=== PATIENT | female | born 1960 | race Caucasian/White ===

== ENCOUNTER 2016-08-18 10:25 | Outpatient (CLI) | payer BC | END 2016-08-18 10:26 | disposition home or self-care (01) | LOC: NC 10:25 | PROVIDERS: ATTEND Internal Medicine | DX: E66.9 Obesity, unspecified (principal); Z71.3 Dietary counseling and surveillance; Z68.32 Body mass index [BMI] 32.0-32.9, adult ==

== ENCOUNTER 2016-09-22 09:46 | Outpatient (CLI) | payer BC | END 2016-09-22 09:47 | disposition home or self-care (01) | LOC: NC 09:46 | PROVIDERS: ATTEND Internal Medicine | DX: E66.09 Other obesity due to excess calories (principal); Z71.3 Dietary counseling and surveillance; Z68.32 Body mass index [BMI] 32.0-32.9, adult; E78.5 Hyperlipidemia, unspecified ==